=== PATIENT | female | born 1945 | race Caucasian/White ===

== ENCOUNTER 2020-08-28 20:39 | Emergency (ER) | payer MEDICARE, BC ==
[2020-08-28] MEDS ORDERED: Fluconazole 100 MG Tab PO ONE (20:49)
[2020-08-28] MEDS ORDERED: Sodium Chloride 0.9% 10 ML Syringe FLUSH PRN (21:04)
[2020-08-28 21:56] LABS: CHLORIDE,CL 111 mmol/L (98-107); SODIUM,NA 146 mmol/L (136-145)
[2020-08-28 21:57] LABS: ANION GAP 14.4 mmol/L (5-15)
[2020-08-28 22:18] LABS: PTT,PARTIAL THROMBOPLSTIN TIME 19.8 SEC (25.6-32.8)
[2020-08-28] MEDS ORDERED: Iopamidol 612 MG/ML 100 ML Bottle IVPUSH ONE (23:54)
--- NOTE | 2020-08-29 00:54 | EDM.PDOC ---
ED HPI GENERAL MEDICAL PROBLEM - General Chief Complaint: Back Pain or Injury Stated Complaint: Upper Back Pain Time Seen by Provider: 08/28/20 20:40 Source of Information: Reports: Patient History Limitations: Reports: No Limitations - History of Present Illness INITIAL COMMENTS - FREE TEXT/NARRATIVE: Pt. presents to ER with complaints of upper back discomfort. Pt. had a PE in 12/2019 and states that this discomfort is very similar. Pt. states that she had just gotten done putting her groceries away and states that the discomfort started after she sat down. Denies any shortness of breath. No chest pain. Denies any fever or chills. She was not diaphoretic. Denies any lightheadedness or syncope. Pt. was on xaralto from 01/02/2020 until 06/02/2020 at which time she had a repeat CTA which showed resolution of the clot. 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 She opted to stop taking any anticoagulation at that time and has since only been on aspirin 81mg daily. In reviewing her chart, it appears she was tachycardic, short of breath, and mildly hypoxic when she was diagnosed last time. She has not had any of these symptoms today. Onset: Today Onset Date: 08/29/20 Location: Reports: Chest Upper Back Pain Score (Numeric/FACES): 2 - Related Data Allergies Allergy/AdvReac Type Severity Reaction Status Date / Time No Known Allergies Allergy Verified 08/29/20 00:38 Home Meds: Home Meds . [Unable to Verify Home Med List] 08/29/20 [History] ED ROS GENERAL - Review of Systems Review Of Systems: See Below Constitutional: Reports: No Symptoms HEENT: Reports: No Symptoms Respiratory: Reports: No Symptoms Cardiovascular: Reports: No Symptoms Endocrine: Reports: No Symptoms GI/Abdominal: Reports: No Symptoms : Reports: No Symptoms Musculoskeletal: Reports: Back Pain Skin: Reports: No Symptoms Neurological: Reports: No Symptoms Psychiatric: Reports: No Symptoms Hematologic/Lymphatic: Reports: No Symptoms Immunologic: Reports: No Symptoms ED EXAM, GENERAL - Physical Exam Exam: See Below Exam Limited By: No Limitations General Appearance: Alert, WD/WN, No Apparent Distress Throat/Mouth: Normal Inspection, Normal Lips, Normal Teeth, Normal Gums, Normal Oropharynx, Normal Voice, No Airway Compromise Head: Atraumatic, Normocephalic Neck: Normal Inspection, Supple, Non-Tender, Full Range of Motion Respiratory/Chest: No Respiratory Distress, Lungs Clear, Normal Breath Sounds, No Accessory Muscle Use, Chest Non-Tender Cardiovascular: Normal Peripheral Pulses, Regular Rate, Rhythm, No Edema, No JVD, No Murmur, No Rub Peripheral Pulses: 4+: Radial (L) GI/Abdominal: Soft, Non-Tender, No Organomegaly, No Distention, No Mass (Female) Exam: Deferred Rectal (Female) Exam: Deferred Back Exam: Normal Inspection, Full Range of Motion Extremities: Normal Inspection, Normal Range of Motion, Non-Tender, No Pedal Edema, Normal Capillary Refill Neurological: Alert, Oriented, CN II-XII Intact, Normal Cognition, Normal Gait, Normal Reflexes, No Motor/Sensory Deficits Psychiatric: Normal Affect, Normal Mood #1 Interpretation Rhythm: NSR QRS: RBBB Comparison: No Change Course - Vital Signs Last Recorded V/S: Last Vital Signs Temp 36.5 C 08/28/20 20:40 Pulse 81 08/28/20 20:40 Resp 14 08/28/20 20:40 BP 162/73 H 08/28/20 20:40 Pulse Ox 97 08/28/20 20:40 - Orders/Labs/Meds Orders: Active Orders 24 hr Category Date Time Status PE Chest [Ang Chest] [CT] Stat Exams 08/28/20 22:17 Taken Peripheral IV Insertion Adult [OM.PC] Routine Oth 08/28/20 21:05 Ordered Labs: Laboratory Tests 08/28/20 08/28/20 08/28/20 Range/Units 21:22 21:22 21:22 WBC 6.4 (4.0-10.0) x10^3/uL RBC 4.08 (4.00-5.50) x10^6/uL Hgb 12.4 (12.0-16.0) g/dL Hct 38.7 (33.0-47.0) % MCV 94.9 H (78.0-93.0) fL MCH 30.4 (26.0-32.0) pg MCHC 32.0 (32.0-36.0) g/dL RDW Coeff of Jessica 13.2 (10.0-15.0) % Plt Count 267 (130-400) x10^3/uL Neut % (Auto) 58.6 (50.0-80.0) % Lymph % (Auto) 28.1 (25.0-50.0) % [place] % (Auto) 8.5 (2.0-11.0) % Eos % (Auto) 4.2 H (0.0-4.0) % Baso % (Auto) 0.6 (0.2-1.2) % PT 9.5 L (9.9-12.5) SEC INR 0.9 L (2.0-3.5) APTT (25.6-32.8) SEC D-Dimer, Quantitative (<=0.58) mg/LFEU Sodium 146 H (136-145) mmol/L Potassium 3.4 L (3.5-5.1) mmol/L Chloride 111 H (98-107) mmol/L Carbon Dioxide 24 (21-32) mmol/L Anion Gap 14.4 (5-15) mmol/L BUN 20 H (7-18) mg/dL Creatinine 1.8 H (0.55-1.02) mg/dL Est Cr Clr Drug Dosing TNP Estimated GFR (MDRD) 27 Glucose 109 H (70-99) mg/dL Calcium 9.0 (8.5-10.1) mg/dL Corrected Calcium 9.3 (8.5-10.1) mg/dL Magnesium 1.8 (1.8-2.4) mg/dL Total Bilirubin 0.3 (0.2-1.0) mg/dL AST 21 (15-37) U/L ALT 21 (14-59) U/L Alkaline Phosphatase 107 (46-116) U/L Troponin I High Sens 8 (<=51) ng/L C-Reactive Protein < 0.2 (<=0.9) mg/dL NT-Pro-B Natriuret Pep 363 (<=450) pg/mL Total Protein 7.6 (6.4-8.2) g/dL Albumin 3.6 (3.4-5.0) g/dL Globulin 4.0 Albumin/Globulin Ratio 0.90 /14/ Range/Units 21:22 WBC (4.0-10.0) x10^3/uL RBC (4.00-5.50) x10^6/uL Hgb (12.0-16.0) g/dL Hct (33.0-47.0) % MCV (78.0-93.0) fL MCH (26.0-32.0) pg MCHC (32.0-36.0) g/dL RDW Coeff of Jessica (10.0-15.0) % Plt Count (130-400) x10^3/uL Neut % (Auto) (50.0-80.0) % Lymph % (Auto) (25.0-50.0) % [place] % (Auto) (2.0-11.0) % Eos % (Auto) (0.0-4.0) % Baso % (Auto) (0.2-1.2) % PT (9.9-12.5) SEC INR (2.0-3.5) APTT 19.8 L (25.6-32.8) SEC D-Dimer, Quantitative 1.04 H (<=0.58) mg/LFEU Sodium (136-145) mmol/L Potassium (3.5-5.1) mmol/L Chloride (98-107) mmol/L Carbon Dioxide (21-32) mmol/L Anion Gap (5-15) mmol/L BUN (7-18) mg/dL Creatinine (0.55-1.02) mg/dL Est Cr Clr Drug Dosing Estimated GFR (MDRD) Glucose (70-99) mg/dL Calcium (8.5-10.1) mg/dL Corrected Calcium (8.5-10.1) mg/dL Magnesium (1.8-2.4) mg/dL Total Bilirubin (0.2-1.0) mg/dL AST (15-37) U/L ALT (14-59) U/L Alkaline Phosphatase (46-116) U/L Troponin I High Sens (<=51) ng/L C-Reactive Protein (<=0.9) mg/dL NT-Pro-B Natriuret Pep (<=450) pg/mL Total Protein (6.4-8.2) g/dL Albumin (3.4-5.0) g/dL Globulin Albumin/Globulin Ratio Meds: Medications Discontinued Medications Generic Name Dose Route Start Last Admin Trade Name Freq PRN Reason Stop Dose Admin Fluconazole 150 mg 05/14/21 20:49 Fluconazole 100 Mg Tab PO 08/28/20 20:50 ONETIME ONE Iopamidol 100 ml 08/28/20 23:54 08/28/20 23:55 Iopamidol 612 Mg/Ml 100 Ml Bottle IVPUSH 08/28/20 23:55 100 ml ONETIME ONE Administration Sodium Chloride 10 ml 08/28/20 21:04 Sodium Chloride 0.9% 10 Ml Syringe FLUSH ASDIRECTED PRN Keep Vein Open - Radiology Interpretation Free Text/Narrative:: CTA chest was obtained due to discomfort, history of PE, and positive d dimer. No PE was identified. No pneumothorax, pneumomediastinum, pleural effusion, or infiltrate noted. Stable opacification noted on previous studies noted in RML, unchanged. Departure - Departure Time of Disposition: 00:45 Disposition: Home, Self-Care 01 Clinical Impression: Atypical chest pain - Discharge Information Instructions: Nonspecific Chest Pain, Adult, [id number] Referrals: Jacinta Rock PA-C [Primary Care Provider] - Forms: ED Department Discharge Additional Instructions: Home to rest. No pulmonary embolism was identified. No infection, collapsed lung, or aneurysm was noted, either. There was some fibrotic area in your R middle lung lobe (this was present on your previous CT scans as well) that the radiologist suggests repeat CT scan for in 3 months or so. Return to ER if you have any shortness of breath, coughing up blood, pass out, or have worsening discomfort. Sepsis Event Note (ED) - Evaluation Sepsis Screening Result: No Definite Risk - Focused Exam Vital Signs: Vital Signs Temp Pulse Resp BP Pulse Ox 08/28/20 20:40 36.5 C 81 14 162/73 H 97 - Problem List Review Problem List Initiated/Reviewed/Updated: Yes - My Orders Last 24 Hours: My Active Orders 08/28/20 21:05 Peripheral IV Insertion Adult [OM.PC] Routine 08/28/20 22:17 PE Chest [Ang Chest] [CT] Stat - Assessment/Plan Last 24 Hours: My Active Orders 08/28/20 21:05 Peripheral IV Insertion Adult [OM.PC] Routine 08/28/20 22:17 PE Chest [Ang Chest] [CT] Stat Plan: Pt. was reassured. Advised to return to ER if she has worsening discomfort, trouble breathing, hemoptysis, fever, chills, palpitations, lightheadedness, or syncope. She will continue using aspirin. Recheck in clinic in 10-14 days, sooner if needed.
--- NOTE | 2020-08-29 08:54 | CT ---
[id number] CT/CTA Chest EXAM: CTA Chest CLINICAL DATA: CHEST PAIN. HX OF PE COMPARISON STUDY: Multiple priors, most recent from May 2020. FINDINGS: Lungs: Apical predominant parenchymal emphysema. 13 x 9 x 8 mm focal nodular appearing opacity in the right middle lobe at the confluence of fissures. No change in size or appearance compared to January 05, 2020. Mild granulomatous change in the lungs. Bibasal scarring. Mild bilateral lower lobe predominant interlobular septal thickening. Findings are nonspecific but can be seen with early/mild changes of chronic interstitial lung disease. Mediastinum: No mediastinal or hilar lymphadenopathy. Heart and great vessels: Heart is normal in size. No pericardial effusion. Thoracic aorta is normal in caliber. Pulmonary arteries are normal in caliber. Negative for pulmonary embolus. Bones: No acute fracture or compression deformity. Spondylosis. Upper abdomen: Unremarkable. IMPRESSION: Negative for pulmonary embolus. 12 mm nodular opacity in the right middle lobe unchanged from January 05, 2020. Finding is nonspecific. Noncontrast chest CT in December 2020 is recommended. Other chronic findings are described above. Felix Joshi MD 08/29/20 0854 Thank you for allowing us to participate in the care of your patient.
== END 2020-08-29 00:53 | disposition home or self-care (01) ==
LOC: VM.ED 20:39
DX: R07.89 Other chest pain (principal)
CPT/HCPCS: 71275; 80053; 83735; 83880; 84484; 85025; 85379; 85610; 85730; 86140; 93005; 99284; Q9967